=== PATIENT | female | born 1950 | race Caucasian/White ===

== ENCOUNTER → 2016-09-09 | Outpatient (CLI) | payer MEDICARE ==
[~2016-09-09] MED LIST: ADVA250A INH; ALBU1AER INH; ASTE0.15 INH; CLIN1.2G TOP; COLE625 PO; DUONI NEB; EXEN10PE SQ; HYDR12.56 PO; LEVO.05 PO; LYRI50CA2 PO; METF1000 PO; MONT10TA2 OR; NATE60TA2 OR; OXYB5TAB PO; PANT40IN3 PO; TELM20 PO; TIOT18I INH; TOPA25TA8 PO; VALT500T PO; VENL75 PO
--- NOTE | 2016-09-10 10:26 | RSPPFT ---
DATE OF PROCEDURE: 09/09/16 COMMENTS: Spirometry with FVC of 2.5 predicted 2.8, FEV1 of 2.1 predicted 2.2, FEV1/FVC ratio 83% predicted 80%. No changes noticed post-bronchodilator acutely. IMPRESSION: On the basis of the above, patient's spirometry is within the predicted range.
== END ==
LOC: HRSP 08:15
PROVIDERS: ATTEND Internal Medicine Pulmonary Disease
DX: J45.909 Unspecified asthma, uncomplicated (principal)
CPT/HCPCS: 94060